=== PATIENT | male | born 1965 | race Caucasian/White ===

== ENCOUNTER 2020-11-25 12:11 | Inpatient (IN) ==
[2020-11-25] MEDS ORDERED: Vancomycin 1,000 MG in NS 0.9% 250 ml 250 ML IV ONE (12:26)
[2020-11-25 13:03] LABS: ABS Basophils 0.1 10^3/ul (0-0.2); ABS Eosinophils 0.6 10^3/ul (0-0.6); ABS Lymphocytes 1.2 10^3/ul (1.0-4.8); ABS Neutrophils 6.9 10^3/ul (1.5-7.7); Eosinophil % 5.7 %; Hematocrit 32 % (42-52); Hemoglobin 10.7 g/dL (14.0-18.0); Lymphocyte % 12.1 %; Mean Corpuscular HGB Conc 33 g/dL (31-36); Mean Corpuscular Hemoglobin 26 pg (27-31); Mean Corpuscular Volume 79 fL (80-94); Mean Platelet Volume 7.3 fL (7.4-10.4); Platelet Count 385 10^3/uL (150-450); Red Blood Count 4.07 10^6 /uL (4.18-5.48); Red Cell Distribution Width 16 % (10-15); White Blood Count 9.8 10^3/uL (3.5-10.8)
[2020-11-25 13:25] LABS: ALT 17 U/L (7-52); AST 14 U/L (13-39); Albumin 4.1 g/dL (3.2-5.2); Albumin/Globulin Ratio 0.9 (1-3); Alkaline Phosphatase 105 U/L (34-104); Anion Gap 9 mmol/L (2-11); BUN/Creatinine Ratio 16.6 (8-20); Blood Urea Nitrogen 25 mg/dL (6-24); C Reactive Protein 58.88 mg/L (<8.01); CO2 Carbon Dioxide 23 mmol/L (22-32); Chloride 101 mmol/L (101-111); EGFR African American 58.3 (>60); EGFR Non-African American 48.2 (>60); Globulin 4.4 g/dL (2-4); Glucose 187 mg/dL (70-100); Potassium 4.4 mmol/L (3.5-5.0); Sodium 133 mmol/L (135-145); Total Protein 8.5 g/dL (6.4-8.9)
[2020-11-25] MEDS ORDERED: Enoxaparin 30 MG/0.3 ML SYR SUBCUT SCH (15:00)
[2020-11-25] MEDS ORDERED: Cefepime 2 GM IV - ED ONCE IV ONE (15:00)
[2020-11-25 15:05] LABS: Erythrocyte Sed Rate 74 mm/Hr (0-19)
[2020-11-25] MEDS ORDERED: Iodixanol (CONTRAST) 320 MG/ML 100 ML SDV IV ONE (15:06)
[2020-11-25 15:11] LABS: % Iron Saturation 11 % (15-55); Iron 28 ug/dL (50-212); Total Iron Binding Capacity 265 mcg/dL (250-450); Transferrin 189 mg/dL (203-362); Unsaturated Iron Binding < 250 ug/dL
[2020-11-25 15:30] LABS: Ferritin 244.8 ng/mL (24-336)
[2020-11-25 15:34] LABS: Folate 11.85 ng/mL (>3.99)
[2020-11-25 15:36] LABS: Vitamin B12 210 pg/mL (180-914)
[2020-11-25] MEDS ORDERED: Dextrose 50% Syringe 50 ml 25 GM/50 ML SYRINGE IV PUSH PRN (15:54)
[2020-11-25] MEDS ORDERED: Vancomycin per Pharmacy 1 EA NOTE FOLLOW UP SCH (16:00)
[2020-11-25] MEDS: Vancomycin 750 MG in NS 0.9% 250 ML IVPB SCH (19:49)
[2020-11-25 20:21] LABS: Urine Appearance Clear; Urine Bilirubin Negative (Negative); Urine Blood 1+ (Negative); Urine Color Yellow; Urine Glucose 1+(50 mg/dL) (Negative); Urine Ketones Negative (Negative); Urine Nitrite Negative (Negative); Urine Protein Negative (Negative); Urine Specific Gravity 1.046 (1.010-1.030); Urine Urobilinogen Negative (Negative)
[2020-11-25 20:43] LABS: Urine Bacteria Absent (Absent); Urine Red Blood Cell 3+(>10/hpf) (Absent); Urine White Blood Cell Trace(0-5/hpf) (Absent)
[2020-11-25] MEDS: Heparin 5000 UNITS/ML 1 mL VIAL SUBCUT SCH (22:40)
[2020-11-26] MEDS: Cefepime 2 GM in Dextrose 2 GM/50 ML BAG IV SCH ×3 (01:26→16:31)
[2020-11-26] MEDS: Vancomycin 750 MG in NS 0.9% 250 ML IVPB SCH ×3 (03:30→20:12)
[2020-11-26 05:13] LABS: Hematocrit 29 % (42-52); Hemoglobin 9.8 g/dL (14.0-18.0); Mean Corpuscular HGB Conc 34 g/dL (31-36); Mean Corpuscular Hemoglobin 26 pg (27-31); Mean Corpuscular Volume 78 fL (80-94); Platelet Count 331 10^3/uL (150-450); Red Blood Count 3.74 10^6 /uL (4.18-5.48); Red Cell Distribution Width 16 % (10-15); White Blood Count 7.3 10^3/uL (3.5-10.8)
[2020-11-26 05:29] LABS: BUN/Creatinine Ratio 16.6 (8-20); Calcium 9.1 mg/dL (8.6-10.3); EGFR African American 61.1 (>60); EGFR Non-African American 50.5 (>60); Potassium 4.9 mmol/L (3.5-5.0)
[2020-11-26] MEDS: Heparin 5000 UNITS/ML 1 mL VIAL SUBCUT SCH ×3 (06:29→22:11)
[2020-11-26] MEDS: DULoxetine DR 30 mg CAP PO SCH (09:40)
[2020-11-26] MEDS: Potassium Chlor 10 meq TAB PO SCH (09:40)
[2020-11-26] MEDS ORDERED: Vancomycin Trough Check NOTE FOLLOW UP ONE (11:00)
[2020-11-26] MEDS ORDERED: Triamcinolone 0.025% OINT 15 GM TUBE TOPICAL PRN (21:00)
[2020-11-27] MEDS: Vancomycin 750 MG in NS 0.9% 250 ML IVPB SCH ×2 (03:01→12:32)
[2020-11-27] MEDS: Heparin 5000 UNITS/ML 1 mL VIAL SUBCUT SCH ×3 (04:40→22:08)
[2020-11-27] MEDS: DULoxetine DR 30 mg CAP PO SCH (08:42)
[2020-11-27] MEDS: Potassium Chlor 10 meq TAB PO SCH (08:43)
[2020-11-27 09:40] LABS: INR 1.21 (0.82-1.09)
[2020-11-27] MEDS ORDERED: Midazolam 2 mg/2 ml VIAL 1 mg/ml 2 ml VIAL (2 mg) ONE (15:49)
[2020-11-27] MEDS ORDERED: Propofol 10 MG/ML 20 ML BTL ONE ×4 (15:49→19:44)
[2020-11-27] MEDS ORDERED: fentaNYL 100 mcg/2 ml 50 MCG/ML VIAL ONE ×2 (15:57→16:50)
[2020-11-27] MEDS ORDERED: ceFAZolin 2 GM PREMIX 2 GM/50 ML BAG ONE ×2 (16:59→21:18)
[2020-11-27] MEDS ORDERED: ceFAZolin 2 GM PREMIX 2 GM/50 ML BAG IVPB ONE ×2 (17:00→21:08)
[2020-11-27] MEDS ORDERED: Bupivacaine 0.25% SDV 30 ML ONE ×2 (19:38→19:44)
[2020-11-27] MEDS ORDERED: ROPIVACAINE 5 MG/ML 30 ML BTL (0.5%) ONE (19:41)
[2020-11-27] MEDS ORDERED: Bupivacaine 0.5% SDV PF 30ML VIAL ONE (19:45)
[2020-11-27] MEDS ORDERED: Vancomycin 1,000 MG VIAL ONE (20:03)
[2020-11-27] MEDS ORDERED: HYDROmorphone 1 MG/1 ML SYRINGE ONE (20:35)
[2020-11-27] MEDS ORDERED: Naloxone 0.4 mg VIAL 0.4 mg/ml 1 ml VIAL IV PRN (21:19)
[2020-11-27] MEDS ORDERED: HYDROmorphone 1 MG/1 ML SYRINGE IV PRN (21:19)
[2020-11-27] MEDS ORDERED: Prochlorperazine 5 mg/ml 2 ml VIAL (10 mg) IV PRN (21:19)
[2020-11-27] MEDS ORDERED: diPHENhydraMINE IV 50 MG/ML 1 ml VIAL (BENADRYL) IV PRN (21:19)
[2020-11-27] MEDS: oxyCODONE/Acetamin 5/325 mg TAB PO PRN (22:10)
[2020-11-28] MEDS: ceFAZolin 2 GM PREMIX 2 GM/50 ML BAG IVPB SCH ×3 (01:26→17:21)
[2020-11-28] MEDS: oxyCODONE/Acetamin 5/325 mg TAB PO PRN ×3 (06:22→21:10)
[2020-11-28] MEDS: Heparin 5000 UNITS/ML 1 mL VIAL SUBCUT SCH (06:23)
[2020-11-28] MEDS: HYDROmorphone 1 MG/1 ML SYRINGE IV SLOW PU PRN ×3 (08:01→21:10)
[2020-11-28 08:36] LABS: Hematocrit 31 % (42-52); Hemoglobin 10.4 g/dL (14.0-18.0); Mean Corpuscular HGB Conc 34 g/dL (31-36); Mean Corpuscular Hemoglobin 26 pg (27-31); Mean Corpuscular Volume 77 fL (80-94); Mean Platelet Volume 7.4 fL (7.4-10.4); Platelet Count 384 10^3/uL (150-450); Red Blood Count 3.93 10^6 /uL (4.18-5.48); Red Cell Distribution Width 16 % (10-15)
[2020-11-28] MEDS: Potassium Chlor 10 meq TAB PO SCH (09:50)
[2020-11-28] MEDS: DULoxetine DR 30 mg CAP PO SCH (09:50)
[2020-11-28] MEDS ORDERED: Vancomycin Trough Check NOTE FOLLOW UP ONE (11:00)
[2020-11-29] MEDS: ceFAZolin 2 GM PREMIX 2 GM/50 ML BAG IVPB SCH ×3 (02:44→18:07)
[2020-11-29] MEDS: oxyCODONE/Acetamin 5/325 mg TAB PO PRN ×4 (02:45→20:59)
[2020-11-29] MEDS: HYDROmorphone 1 MG/1 ML SYRINGE IV SLOW PU PRN ×2 (09:40→21:00)
[2020-11-29] MEDS: DULoxetine DR 30 mg CAP PO SCH (09:48)
[2020-11-29] MEDS: Potassium Chlor 10 meq TAB PO SCH (09:48)
[2020-11-30] MEDS: ceFAZolin 2 GM PREMIX 2 GM/50 ML BAG IVPB SCH ×3 (00:48→17:00)
[2020-11-30] MEDS: oxyCODONE/Acetamin 5/325 mg TAB PO PRN ×4 (05:20→21:41)
[2020-11-30 06:04] LABS: Hematocrit 25 % (42-52); Hemoglobin 8.5 g/dL (14.0-18.0); Mean Corpuscular Volume 77 fL (80-94); White Blood Count 6.9 10^3/uL (3.5-10.8)
[2020-11-30 06:05] LABS: Mean Corpuscular HGB Conc 35 g/dL (31-36); Mean Corpuscular Hemoglobin 27 pg (27-31)
[2020-11-30 06:08] LABS: ABS Eosinophils 0.7 10^3/ul (0-0.6); ABS Monocytes 1.1 10^3/ul (0-0.8); ABS Neutrophils 4.1 10^3/ul (1.5-7.7); Lymphocyte % 14.9 %; Mean Platelet Volume 7.4 fL (7.4-10.4); Platelet Count 319 10^3/uL (150-450); Red Cell Distribution Width 16 % (10-15)
[2020-11-30 06:09] LABS: Eosinophil % 9.4 %
[2020-11-30 08:09] LABS: BUN/Creatinine Ratio 18.5 (8-20); EGFR African American 58.3 (>60); EGFR Non-African American 48.2 (>60); Potassium 4.2 mmol/L (3.5-5.0)
[2020-11-30 08:10] LABS: Calcium 8.7 mg/dL (8.6-10.3)
[2020-11-30] MEDS: Potassium Chlor 10 meq TAB PO SCH (08:31)
[2020-11-30] MEDS: DULoxetine DR 30 mg CAP PO SCH (08:31)
[2020-11-30] MEDS: HYDROmorphone 1 MG/1 ML SYRINGE IV SLOW PU PRN (18:27)
[2020-12-01] MEDS: Polyethylene Glycol 3350 17 GM PACKET PO SCH ×2 (00:15→08:08)
[2020-12-01] MEDS: ceFAZolin 2 GM PREMIX 2 GM/50 ML BAG IVPB SCH ×3 (00:15→16:35)
[2020-12-01] MEDS: HYDROmorphone 1 MG/1 ML SYRINGE IV SLOW PU PRN ×2 (01:55→19:54)
[2020-12-01] MEDS: oxyCODONE/Acetamin 5/325 mg TAB PO PRN ×5 (01:59→19:51)
[2020-12-01 06:26] LABS: Hematocrit 26 % (42-52); Hemoglobin 8.6 g/dL (14.0-18.0); Mean Corpuscular HGB Conc 34 g/dL (31-36); Mean Corpuscular Hemoglobin 26 pg (27-31); Mean Corpuscular Volume 78 fL (80-94); Platelet Count 344 10^3/uL (150-450); Red Blood Count 3.29 10^6 /uL (4.18-5.48); Red Cell Distribution Width 16 % (10-15); White Blood Count 6.7 10^3/uL (3.5-10.8)
[2020-12-01] MEDS: Potassium Chlor 10 meq TAB PO SCH (08:18)
[2020-12-01] MEDS: DULoxetine DR 30 mg CAP PO SCH (08:18)
[2020-12-02] MEDS: oxyCODONE/Acetamin 5/325 mg TAB PO PRN ×3 (01:02→17:27)
[2020-12-02] MEDS: ceFAZolin 2 GM PREMIX 2 GM/50 ML BAG IVPB SCH ×3 (01:03→17:32)
[2020-12-02] MEDS: Potassium Chlor 10 meq TAB PO SCH (10:15)
[2020-12-02] MEDS: DULoxetine DR 30 mg CAP PO SCH (10:15)
[2020-12-02] MEDS: Polyethylene Glycol 3350 17 GM PACKET PO SCH (10:16)
[2020-12-02] MEDS: HYDROmorphone 1 MG/1 ML SYRINGE IV SLOW PU PRN (18:25)
[2020-12-03] MEDS: HYDROmorphone 1 MG/1 ML SYRINGE IV SLOW PU PRN ×4 (00:05→22:17)
[2020-12-03] MEDS: ceFAZolin 2 GM PREMIX 2 GM/50 ML BAG IVPB SCH ×3 (00:08→17:34)
[2020-12-03] MEDS: oxyCODONE/Acetamin 5/325 mg TAB PO PRN ×2 (01:05→17:34)
[2020-12-03 08:02] LABS: Hematocrit 28 % (42-52); Hemoglobin 9.3 g/dL (14.0-18.0); Mean Corpuscular HGB Conc 33 g/dL (31-36); Mean Corpuscular Hemoglobin 26 pg (27-31); Mean Corpuscular Volume 78 fL (80-94); Mean Platelet Volume 7.4 fL (7.4-10.4); Platelet Count 413 10^3/uL (150-450); Red Blood Count 3.61 10^6 /uL (4.18-5.48); Red Cell Distribution Width 16 % (10-15); White Blood Count 8.2 10^3/uL (3.5-10.8)
[2020-12-03 08:18] LABS: BUN/Creatinine Ratio 21.2 (8-20); C Reactive Protein 88.65 mg/L (<8.01); Calcium 9.5 mg/dL (8.6-10.3); EGFR African American 65.3 (>60); EGFR Non-African American 53.9 (>60); Potassium 4.5 mmol/L (3.5-5.0)
[2020-12-03] MEDS: Polyethylene Glycol 3350 17 GM PACKET PO SCH (09:04)
[2020-12-03] MEDS: Potassium Chlor 10 meq TAB PO SCH (09:05)
[2020-12-03] MEDS: DULoxetine DR 30 mg CAP PO SCH (09:05)
[2020-12-03 09:30] LABS: ABS Basophils 0.1 10^3/ul (0-0.2); ABS Eosinophils 0.9 10^3/ul (0-0.6); ABS Lymphocytes 1.5 10^3/ul (1.0-4.8); ABS Neutrophils 4.7 10^3/ul (1.5-7.7); Eosinophil % 11.4 %
[2020-12-04] MEDS: ceFAZolin 2 GM PREMIX 2 GM/50 ML BAG IVPB SCH ×3 (01:24→17:40)
[2020-12-04] MEDS: Polyethylene Glycol 3350 17 GM PACKET PO SCH (08:36)
[2020-12-04] MEDS: oxyCODONE/Acetamin 5/325 mg TAB PO PRN ×3 (08:37→21:29)
[2020-12-04] MEDS: Potassium Chlor 10 meq TAB PO SCH (08:38)
[2020-12-04] MEDS: DULoxetine DR 30 mg CAP PO SCH (08:38)
[2020-12-04] MEDS: HYDROmorphone 1 MG/1 ML SYRINGE IV SLOW PU PRN ×2 (17:36→22:02)
[2020-12-05] MEDS: oxyCODONE/Acetamin 5/325 mg TAB PO PRN ×3 (01:33→12:47)
[2020-12-05] MEDS: ceFAZolin 2 GM PREMIX 2 GM/50 ML BAG IVPB SCH ×2 (01:35→09:12)
[2020-12-05] MEDS: HYDROmorphone 1 MG/1 ML SYRINGE IV SLOW PU PRN (02:44)
[2020-12-05] MEDS: DULoxetine DR 30 mg CAP PO SCH (09:10)
[2020-12-05] MEDS: Potassium Chlor 10 meq TAB PO SCH (09:11)
[2020-12-05] MEDS: Polyethylene Glycol 3350 17 GM PACKET PO SCH (09:12)
[2020-12-05 09:33] VITALS: BP 129/69
[2020-12-05 10:20] LABS: Hematocrit 26 % (42-52); Hemoglobin 8.8 g/dL (14.0-18.0); Mean Corpuscular HGB Conc 34 g/dL (31-36); Mean Corpuscular Hemoglobin 26 pg (27-31); Mean Corpuscular Volume 78 fL (80-94); Mean Platelet Volume 7.1 fL (7.4-10.4); Platelet Count 412 10^3/uL (150-450); Red Blood Count 3.35 10^6 /uL (4.18-5.48); Red Cell Distribution Width 16 % (10-15); White Blood Count 8.2 10^3/uL (3.5-10.8)
[2020-12-05 10:38] LABS: BUN/Creatinine Ratio 24.1 (8-20); C Reactive Protein 87.11 mg/L (<8.01); Calcium 9.5 mg/dL (8.6-10.3); EGFR African American 65.3 (>60); EGFR Non-African American 53.9 (>60); Potassium 4.5 mmol/L (3.5-5.0)
[2020-12-05 10:43] LABS: ABS Basophils 0.1 10^3/ul (0-0.2); ABS Eosinophils 0.8 10^3/ul (0-0.6); ABS Lymphocytes 1.2 10^3/ul (1.0-4.8); ABS Monocytes 1.1 10^3/ul (0-0.8); ABS Neutrophils 5.1 10^3/ul (1.5-7.7); Eosinophil % 10.1 %; Lymphocyte % 14.3 %; Nucleated Red Blood Cells % 0.1
== END 2020-12-05 14:00 | disposition home health service (06) | DRG 302 ==
LOC: ED 12:11 → SSU 15:57 → MED 11-26 19:35
PROVIDERS: ADMIT Internal Medicine; ATTEND Hospitalist